=== PATIENT | male | born 2000 | race Caucasian/White ===

== ENCOUNTER → 2024-03-04 09:45 | Outpatient (REF) | payer OTHER, SELFPAY ==
[2024-03-04 11:59] LABS: Free T4 0.97 ng/dl (0.78-2.19)
[2024-03-04 12:13] LABS: TSH < 0.02 uIU/ml (0.47-4.68)
== END ==
LOC: REG 09:45
PROVIDERS: ATTENDING PHYSICIAN Internal Medicine Endocrinology, Diabetes & Metabolism
DX: E23.7 Disorder of pituitary gland, unspecified (principal)
CPT/HCPCS: 36415; 84439; 84443

== ENCOUNTER → 2024-04-09 18:35 | Outpatient (REF) | payer BC, SELFPAY | LOC: MRI 18:35 | PROVIDERS: ATTENDING PHYSICIAN Neurological Surgery; FAMILY PHYSICIAN Family Medicine | DX: D44.4 Neoplasm of uncertain behavior of craniopharyngeal duct (principal) | CPT/HCPCS: 70553; A9575 ==

== ENCOUNTER → 2024-04-22 10:21 | Outpatient (REF) | payer BC, SELFPAY ==
[2024-04-22 11:54] LABS: ALT (SGPT) 40 U/L (0-50); AST (SGOT) 35 U/L (17-59); Albumin 4.6 g/dl (3.5-5.0); Alkaline Phosphatase 63 U/L (38-126); Blood Urea Nitrogen 8 mg/dl (9-20); Calcium 9.6 mg/dl (8.4-10.2); Carbon Dioxide 25 mmol/L (22-30); Chloride 106 mmol/L (98-107); Glucose 96 mg/dl (70-99); Potassium 4.3 mmol/L (3.5-5.1); Sodium 140 mmol/L (135-145); Total Bilirubin 0.7 mg/dl (0.2-1.3); Total Protein 7.1 g/dl (6.3-8.2); eGFR > 60.00
[2024-04-22 20:19] LABS: FSH < 0.7 mIU/ml (1.55-9.74); Free T4 0.82 ng/dl (0.78-2.19); Luteinizing Hormone < 0.22 mIU/ml (1.24-7.80); Prolactin 42.9 ng/ml (3.7-17.9)
[2024-04-22 20:33] LABS: TSH < 0.02 uIU/ml (0.47-4.68)
[2024-04-22 21:25] LABS: Cortisol, Random 3.2 ug/dl
[2024-04-23 15:07] LABS: Adrenocorticotropic Hormone 1.9 pg/mL (7.2-63.3)
[2024-04-23 17:12] LABS: IGF-1 Z Score Calculation -0.9; Insulin-like Growth Factor I 142 ng/mL (99-283)
== END ==
LOC: REG 10:21
PROVIDERS: ATTENDING PHYSICIAN Internal Medicine Endocrinology, Diabetes & Metabolism; FAMILY PHYSICIAN Family Medicine
DX: E23.7 Disorder of pituitary gland, unspecified (principal); D44.4 Neoplasm of uncertain behavior of craniopharyngeal duct
CPT/HCPCS: 36415; 80053; 82024; 82533; 83001; 83002; 84146; 84305; 84403; 84439; 84443

== ENCOUNTER → 2024-06-17 09:14 | Outpatient (REF) | payer BC, SELFPAY ==
[2024-06-17 10:38] LABS: Free T4 1.03 ng/dl (0.78-2.19)
== END ==
LOC: REG 09:14
PROVIDERS: ATTENDING PHYSICIAN Internal Medicine Endocrinology, Diabetes & Metabolism
DX: E23.7 Disorder of pituitary gland, unspecified (principal)
CPT/HCPCS: 36415; 84439

== ENCOUNTER → 2024-06-25 10:53 | Outpatient (REF) | payer BC, SELFPAY ==
[2024-06-25 11:58] LABS: Glycohemoglobin (HgbA1c) 5.3 % (4.0-5.6)
== END ==
LOC: REG 10:53
PROVIDERS: ATTENDING PHYSICIAN Internal Medicine Endocrinology, Diabetes & Metabolism; FAMILY PHYSICIAN Family Medicine
DX: E23.7 Disorder of pituitary gland, unspecified (principal); D44.4 Neoplasm of uncertain behavior of craniopharyngeal duct; R63.5 Abnormal weight gain
CPT/HCPCS: 36415; 83036

== ENCOUNTER → 2024-10-31 08:59 | Outpatient (REF) | payer BC, SELFPAY ==
[2024-10-31 10:52] LABS: ALT (SGPT) 86 U/L (0-50); AST (SGOT) 57 U/L (17-59); Albumin 4.9 g/dl (3.5-5.0); Alkaline Phosphatase 55 U/L (38-126); Blood Urea Nitrogen 8 mg/dl (9-20); Calcium 9.4 mg/dl (8.4-10.2); Carbon Dioxide 26 mmol/L (22-30); Chloride 104 mmol/L (98-107); Glucose 85 mg/dl (70-99); Potassium 4.2 mmol/L (3.5-5.1); Sodium 140 mmol/L (135-145); Total Bilirubin 0.8 mg/dl (0.2-1.3); Total Protein 7.5 g/dl (6.3-8.2); eGFR > 60.00
[2024-10-31 11:06] LABS: Free T4 1.07 ng/dl (0.78-2.19); Prolactin 32.7 ng/ml (3.7-17.9)
[2024-11-02 02:50] LABS: % Free Testosterone 2.6 % (1.6-2.9); Free Testosterone 385 pg/mL (47-244); Sex Hormone Binding Globulin 24 nmol/L (17-56); Total Testosterone 1470 ng/dL (300-1080)
== END ==
LOC: REG 08:59
PROVIDERS: ATTENDING PHYSICIAN Internal Medicine Endocrinology, Diabetes & Metabolism; FAMILY PHYSICIAN Family Medicine
DX: E23.7 Disorder of pituitary gland, unspecified (principal)
CPT/HCPCS: 36415; 80053; 84146; 84270; 84402; 84403; 84439

== ENCOUNTER → 2024-11-01 14:28 | Outpatient (REF) | payer BC, SELFPAY | LOC: PAVMRI 14:28 | PROVIDERS: ATTENDING PHYSICIAN Neurological Surgery; FAMILY PHYSICIAN Family Medicine | DX: D44.4 Neoplasm of uncertain behavior of craniopharyngeal duct (principal) | CPT/HCPCS: 70553; A9575 ==

== ENCOUNTER → 2024-12-04 07:48 | Outpatient (REF) | payer BC, SELFPAY ==
[2024-12-06 09:50] LABS: % Free Testosterone <2.0 % (1.6-2.9); Free Testosterone <1 pg/mL (47-244); Sex Hormone Binding Globulin 23 nmol/L (17-56); Total Testosterone <3 ng/dL (300-1080)
== END ==
LOC: REG 07:48
PROVIDERS: ATTENDING PHYSICIAN Internal Medicine Endocrinology, Diabetes & Metabolism
DX: E23.7 Disorder of pituitary gland, unspecified (principal)
CPT/HCPCS: 36415; 84270; 84402; 84403

== ENCOUNTER → 2024-12-06 12:40 | Outpatient (REF) | payer BC, SELFPAY ==
[2024-12-06 13:53] LABS: FSH < 0.7 mIU/ml (1.55-9.74); Luteinizing Hormone < 0.22 mIU/ml (1.24-7.80)
[2024-12-06 14:10] LABS: Testosterone, Total < 4.9 ng/dl (132-813)
== END ==
LOC: REG 12:40
PROVIDERS: ATTENDING PHYSICIAN Internal Medicine Endocrinology, Diabetes & Metabolism; FAMILY PHYSICIAN Family Medicine
DX: E23.7 Disorder of pituitary gland, unspecified (principal)
CPT/HCPCS: 36415; 83001; 83002; 84403

== ENCOUNTER → 2025-01-31 07:32 | Outpatient (REF) | payer BC, SELFPAY ==
[2025-02-01 23:18] LABS: % Free Testosterone 2.4 % (1.6-2.9); Free Testosterone 263 pg/mL (47-244); Sex Hormone Binding Globulin 27 nmol/L (17-56); Total Testosterone 1104 ng/dL (300-1080)
== END ==
LOC: REG 07:32
PROVIDERS: ATTENDING PHYSICIAN Internal Medicine Endocrinology, Diabetes & Metabolism; FAMILY PHYSICIAN Family Medicine
DX: E29.1 Testicular hypofunction (principal)
CPT/HCPCS: 36415; 84270; 84402; 84403

== ENCOUNTER → 2025-04-18 12:46 | Outpatient (REF) | payer BC, SELFPAY ==
[2025-04-18 13:58] LABS: Hematocrit 45.7 % (39.0-52.0); Hemoglobin 15.1 g/dL (13.0-18.0); Mean Corp Hgb Conc. 33.0 g/dL (33.0-37.0); Mean Corpuscular Volume 87.4 fL (80.0-94.0); Platelet Count 322 10^3/uL (130-400); Red Cell Dist. Width 12.9 % (11.5-14.5)
[2025-04-18 15:26] LABS: ALT (SGPT) 60 U/L (0-50); AST (SGOT) 35 U/L (17-59); Albumin 5.0 g/dl (3.5-5.0); Alkaline Phosphatase 50 U/L (38-126); Blood Urea Nitrogen 9 mg/dl (9-20); Calcium 9.6 mg/dl (8.4-10.2); Carbon Dioxide 26 mmol/L (22-30); Chloride 104 mmol/L (98-107); Glucose 84 mg/dl (70-99); Potassium 4.3 mmol/L (3.5-5.1); Sodium 140 mmol/L (135-145); Total Protein 7.9 g/dl (6.3-8.2); eGFR > 60.00
[2025-04-18 15:56] LABS: TSH < 0.02 uIU/ml (0.47-4.68)
== END ==
LOC: REG 12:46
PROVIDERS: ATTENDING PHYSICIAN Internal Medicine Endocrinology, Diabetes & Metabolism; FAMILY PHYSICIAN Family Medicine
DX: E23.7 Disorder of pituitary gland, unspecified (principal); D44.4 Neoplasm of uncertain behavior of craniopharyngeal duct
CPT/HCPCS: 36415; 80053; 84146; 84270; 84402; 84403; 84439; 84443; 85027

== ENCOUNTER → 2025-05-15 07:18 | Outpatient (REF) | payer BC, SELFPAY ==
[2025-05-15 08:15] LABS: Blood Urea Nitrogen 10 mg/dl (9-20); Calcium 9.4 mg/dl (8.4-10.2); Carbon Dioxide 29 mmol/L (22-30); Chloride 106 mmol/L (98-107); Glucose 91 mg/dl (70-99); Potassium 4.2 mmol/L (3.5-5.1); Sodium 142 mmol/L (135-145); eGFR > 60.00
== END ==
LOC: REG 07:18
PROVIDERS: ATTENDING PHYSICIAN Internal Medicine Endocrinology, Diabetes & Metabolism; FAMILY PHYSICIAN Family Medicine
DX: E23.7 Disorder of pituitary gland, unspecified (principal)
CPT/HCPCS: 36415; 80048

== ENCOUNTER → 2025-06-05 15:49 | Outpatient (REF) | payer BC, SELFPAY | LOC: MRI 3T 15:49 | PROVIDERS: ATTENDING PHYSICIAN Neurological Surgery; FAMILY PHYSICIAN Family Medicine | DX: D44.4 Neoplasm of uncertain behavior of craniopharyngeal duct (principal) | CPT/HCPCS: 70553; A9575 ==

== ENCOUNTER → 2025-06-20 13:24 | Outpatient (REF) | payer BC, SELFPAY ==
[2025-06-20 15:37] LABS: Blood Urea Nitrogen 9 mg/dl (9-20); Calcium 9.7 mg/dl (8.4-10.2); Carbon Dioxide 27 mmol/L (22-30); Chloride 105 mmol/L (98-107); Glucose 90 mg/dl (70-99); Potassium 4.2 mmol/L (3.5-5.1); Sodium 141 mmol/L (135-145); eGFR > 60.00
== END ==
LOC: REG 13:24
PROVIDERS: ATTENDING PHYSICIAN Internal Medicine Endocrinology, Diabetes & Metabolism; FAMILY PHYSICIAN Family Medicine
DX: E23.7 Disorder of pituitary gland, unspecified (principal)
CPT/HCPCS: 36415; 80048